=== PATIENT | male | born 1985 | race Caucasian/White ===

== ENCOUNTER 2018-04-23 16:24 | Emergency (ER) | payer OTHER ==
[~2018-04-23] VITALS: Ht 170.2 cm; Wt 83.9 kg
[~2018-04-23 16:24] MED LIST: CIPRO500 MG PO; FLAGYL500MG PO; PROTONIX40 MG PO
== END 2018-04-23 21:32 | disposition home or self-care (01) ==
LOC: ER 16:24
DX: K52.89 Other specified noninfective gastroenteritis and colitis (principal)

== ENCOUNTER 2023-04-20 04:05 | Emergency (ER) | payer OTHER ==
[~2023-04-20] VITALS: Ht 175.3 cm; Wt 82.6 kg
[2023-04-20] MEDS ORDERED: PYRIDIUM DS200 MG PO (07:54)
[2023-04-20] MEDS ORDERED: ANUSOL-HC25 MG RECTAL ×3 (07:54→07:55)
[2023-04-20] MEDS ORDERED: CIPRO500 MG PO (07:54)
== END 2023-04-20 08:04 ==
LOC: ER
DX: R30.0 Dysuria (principal)

== ENCOUNTER 2023-04-20 14:26 | Emergency (ER) | payer OTHER ==
[~2023-04-20] VITALS: Ht 152.4 cm; Wt 86.2 kg
[~2023-04-20 14:26] MED LIST changes: +ANUSOL-HC25 MG RECTAL; +PYRIDIUM DS200 MG PO
== END 2023-04-20 21:05 | disposition home or self-care (01) ==
LOC: ER 14:26
DX: N20.1 Calculus of ureter (principal); R10.9 Unspecified abdominal pain

== ENCOUNTER 2025-10-31 13:46 | Emergency (ER) | payer OTHER ==
[~2025-10-31] VITALS: Ht 167.6 cm; Wt 86.2 kg
[2025-10-31] MEDS ORDERED: ORPHENADRINE CITRATE 30 MG/ML AMPUL IM ONE (16:00)
[2025-10-31] MEDS ORDERED: KETOROLAC TROMETHAMINE 30 MG VIAL ONE (16:00)
[2025-10-31] MEDS ORDERED: KETOROLAC TROMETHAMINE 30 MG VIAL IM ONE (16:00)
[2025-10-31] MEDS ORDERED: ORPHENADRINE CITRATE 30 MG/ML AMPUL ONE (16:00)
[2025-10-31] MEDS ORDERED: NORFLEX100MG PO (18:04)
[2025-10-31] MEDS ORDERED: DICLOFENAC SODI50 MG PO (18:04)
== END 2025-10-31 19:00 ==
LOC: ER 13:46
DX: S10.83XA Contusion of other specified part of neck, initial encounter (principal); V49.9XXA Car occupant (driver) (passenger) injured in unspecified traffic accident, initial encounter; Y93.89 Activity, other specified; Y92.413 State road as the place of occurrence of the external cause; Y99.9 Unspecified external cause status; M62.838 Other muscle spasm; M54.89 Other dorsalgia; Z87.09 Personal history of other diseases of the respiratory system